=== PATIENT | male | born 1960 | race African-American/Black ===

== ENCOUNTER 2019-12-20 13:08 | Emergency (ER) | payer OTHER ==
[~2019-12-20] VITALS: Ht 182.9 cm; Wt 86.4 kg
[2019-12-20 15:43] LABS: HEMATOCRIT 40.3 % (41-53); HEMOGLOBIN 13.2 g/dL (13.5-17.5)
[2019-12-20 16:50] VITALS: BP 139/75
== END 2019-12-20 16:53 | disposition home or self-care (01) ==
LOC: EMS 13:43
DX: K64.9 Unspecified hemorrhoids (principal); K62.5 Hemorrhage of anus and rectum; E78.00 Pure hypercholesterolemia, unspecified; I10 Essential (primary) hypertension; F17.210 Nicotine dependence, cigarettes, uncomplicated
CPT/HCPCS: 85014; 85018

== ENCOUNTER 2020-09-26 16:53 | Inpatient (IN) | payer SELFPAY ==
[~2020-09-26] VITALS: Ht 182.9 cm; Wt 83.0 kg
[2020-09-26] MEDS ORDERED: ALBUTEROL SULFATE HFA 90 MCG/PUFF 8 GM INHALER IH ONE (18:00)
[2020-09-26 18:58] LABS: BASOPHILS % (AUTO) 0.3 % (0.0-2.0); EOSINOPHILS % (AUTO) 0.2 % (1.0-6.0); HEMATOCRIT 36.5 % (41-53); HEMOGLOBIN 12.1 g/dL (13.5-17.5); LYMPHOCYTES # (AUTO) 1.4 K/uL (1.0-4.8); LYMPHOCYTES % (AUTO) 11.6 % (22.0-44.0); MEAN CORPUSCULAR HEMOGLOBIN 33.4 pg (26.0-34.0); MEAN CORPUSCULAR HGB CONC 33.2 G/dL (31.0-37.0); MEAN CORPUSCULAR VOLUME 101 fL (80-100); MONOCYTES # (AUTO) 0.8 K/uL (0.1-1.0); MONOCYTES % (AUTO) 6.5 % (2.0-9.0); NEUTROPHILS # (AUTO) 9.8 K/uL (1.8-7.7); NEUTROPHILS % (AUTO) 81.4 % (40.0-70.0); PLATELET COUNT (AUTO) 318 K/uL (150-450); RED BLOOD CELL COUNT(AUTO) 3.63 MIL/uL (4.50-5.90); RED CELL DISTRIBUTION WIDTH 14.3 % (11.5-14.5)
[2020-09-26 18:59] LABS: COVID AG,FIA SOURCE NASOPHARYNGEAL
[2020-09-26 19:54] LABS: ALANINE AMINOTRANSFERASE 38 U/L (12-78); ALKALINE PHOSPHATASE 109 U/L (46-116); ANION GAP 8 mmol/L (8-16); ASPARTATE AMINOTRANSFERASE 30 U/L (15-37); BILIRUBIN,TOTAL 0.8 mg/dL (0.1-1.0); CALCIUM, TOTAL 9.5 mg/dL (8.8-10.5); CARBON DIOXIDE 29 mmol/L (22-29); CHLORIDE 94 mmol/L (98-107); CREATININE 1.02 mg/dL (0.60-1.30); GLOMERULAR FILTR. RATE CALC > 60 mL/min (>60); GLUCOSE,RANDOM 116 mg/dL (70-110); SODIUM SERUM 131 mmol/L (136-145); TOTAL PROTEIN, SERUM 8.1 g/dL (6.4-8.2); UREA NITROGEN, BLOOD 6 mg/dL (7-18)
[2020-09-26 19:58] LABS: POTASSIUM 2.8 mmol/L (3.5-5.1)
[2020-09-26 19:59] LABS: B-TYPE NATRIURETIC PEPTIDE 12 pg/mL (0-100)
[2020-09-26] MEDS ORDERED: POTASSIUM CHLORIDE 20 MEQ ER TABLET PO ONE (20:15)
[2020-09-26] MEDS ORDERED: DOCUSATE SODIUM 100 MG CAPSULE PO PRN (20:30)
[2020-09-26] MEDS ORDERED: ACETAMINOPHEN 325 MG TABLET PO PRN (20:30)
[2020-09-26] MEDS: POTASSIUM CHL 10 MEQ/WATER 50 ML IV SCH ×2 (20:30→22:20)
[2020-09-26] MEDS ORDERED: ONDANSETRON HCL 4 MG/2 ML VIAL IVP PRN (20:30)
[2020-09-26] MEDS ORDERED: AZITHROMYCIN 500 MG/NS 250 ML IV ONE (20:45)
[2020-09-26] MEDS ORDERED: ASPIRIN 81 MG CHEWABLE TABLET PO ONE (20:45)
[2020-09-26] MEDS ORDERED: CefTRIAXone 1 GM/DEXTROSE 50 ML IV ONE (20:45)
[2020-09-26] MEDS ORDERED: POTASSIUM CHLORIDE 20 MEQ ER TABLET PO PRN (20:45)
[2020-09-26] MEDS ORDERED: POTASSIUM CHL 10 MEQ/WATER 50 ML IV PRN (20:45)
[2020-09-26] MEDS ORDERED: VANCOMYCIN HCL 1 GM/D5% WATER 200 ML IV ONE (20:45)
[2020-09-26] MEDS ORDERED: SODIUM CHLORIDE 0.9% 100 ML ONE (20:48)
[2020-09-26] MEDS ORDERED: IOVERSOL 350 MG/ML 100 ML VIAL ONE (20:48)
[2020-09-26] MEDS ORDERED: CefTRIAXone 1 GM/DEXTROSE 50 ML IV SCH (21:00)
[2020-09-26 23:15] VITALS: BP 125/67
[2020-09-26] MEDS: SODIUM CHLORIDE 0.9% 1,000 ML IV SCH (23:29)
[2020-09-26] MEDS ORDERED: PNEUMOCOCCAL VACCINE POLYVALENT 0.5 ML VIAL [PPSV23] IM ONE (23:45)
[2020-09-27 03:45] VITALS: BP_SYST 122; BP_SYST 98; BP_DIAS 57; BP_DIAS 75
[2020-09-27 06:46] LABS: BASOPHILS % (AUTO) 0.4 % (0.0-2.0); EOSINOPHILS % (AUTO) 0.4 % (1.0-6.0); HEMATOCRIT 32.1 % (41-53); HEMOGLOBIN 10.7 g/dL (13.5-17.5); LYMPHOCYTES # (AUTO) 1.4 K/uL (1.0-4.8); MEAN CORPUSCULAR HEMOGLOBIN 33.2 pg (26.0-34.0); MEAN CORPUSCULAR HGB CONC 33.4 G/dL (31.0-37.0); MEAN CORPUSCULAR VOLUME 100 fL (80-100); MONOCYTES # (AUTO) 0.8 K/uL (0.1-1.0); NEUTROPHILS # (AUTO) 11.3 K/uL (1.8-7.7); NEUTROPHILS % (AUTO) 83.2 % (40.0-70.0); PLATELET COUNT (AUTO) 300 K/uL (150-450); RED BLOOD CELL COUNT(AUTO) 3.22 MIL/uL (4.50-5.90); RED CELL DISTRIBUTION WIDTH 14.3 % (11.5-14.5)
[2020-09-27 06:52] LABS: ANION GAP 11 mmol/L (8-16); CALCIUM, TOTAL 8.9 mg/dL (8.8-10.5); CARBON DIOXIDE 25 mmol/L (22-29); CHLORIDE 103 mmol/L (98-107); CREATININE 0.87 mg/dL (0.60-1.30); GLOMERULAR FILTR. RATE CALC > 60 mL/min (>60); GLUCOSE,RANDOM 109 mg/dL (70-110); POTASSIUM 3.6 mmol/L (3.5-5.1); SODIUM SERUM 139 mmol/L (136-145); UREA NITROGEN, BLOOD 6 mg/dL (7-18)
[2020-09-27 07:44] VITALS: BP 120/70
[2020-09-27] MEDS ORDERED: HEPARIN SODIUM,PORCINE 5,000 UNITS/ML VIAL SQ SCH (11:45)
[2020-09-27] MEDS ORDERED: FAMOTIDINE 20 MG TABLET PO SCH (11:45)
[2020-09-27 11:53] VITALS: BP 125/68
[2020-09-27] MEDS: SODIUM CHLORIDE 0.9% 1,000 ML IV SCH (12:01)
[2020-09-27 15:41] VITALS: BP 118/62
[2020-09-27] MEDS ORDERED: AZITHROMYCIN 500 MG/NS 250 ML IV SCH (22:00)
== END 2020-09-27 15:45 | disposition left against medical advice (07) | DRG 871 ==
LOC: EMS 16:56 → 5N 20:30
PROVIDERS: ADMIT Internal Medicine; ATTEND Internal Medicine
DX: A41.9 Sepsis, unspecified organism (principal); J18.9 Pneumonia, unspecified organism; J44.0 Chronic obstructive pulmonary disease with (acute) lower respiratory infection; I10 Essential (primary) hypertension; E78.00 Pure hypercholesterolemia, unspecified; F17.210 Nicotine dependence, cigarettes, uncomplicated; E87.6 Hypokalemia; R91.8 Other nonspecific abnormal finding of lung field; Z20.822 Contact with and (suspected) exposure to COVID-19; Z53.29 Procedure and treatment not carried out because of patient's decision for other reasons
CPT/HCPCS: 71275; 83605; 83735; 83930; 84145; 85379; 87040; 87426; 93005; 94640; 99285; J0456; J0696; J1644; J3370; J3480; J3535; J7030; J7050; 36415-L1; 36415-TC; 71045-TC; U0003

== ENCOUNTER 2020-09-28 23:32 | Inpatient (IN) | payer SELFPAY ==
[~2020-09-28] VITALS: Ht 182.9 cm; Wt 83.0 kg
[2020-09-29] MEDS ORDERED: SODIUM CHLORIDE 0.9% 100 ML ONE (00:10)
[2020-09-29] MEDS ORDERED: IOVERSOL 350 MG/ML 150 ML VIAL ONE (00:10)
[2020-09-29] MEDS ORDERED: ACETAMINOPHEN 325 MG TABLET PO PRN ×2 (01:30)
[2020-09-29] MEDS ORDERED: ONDANSETRON HCL 4 MG/2 ML VIAL IVP PRN ×2 (01:30)
[2020-09-29 01:34] LABS: BASOPHILS % (AUTO) 0.4 % (0.0-2.0); EOSINOPHILS % (AUTO) 0.8 % (1.0-6.0); HEMATOCRIT 33.4 % (41-53); LYMPHOCYTES # (AUTO) 1.6 K/uL (1.0-4.8); LYMPHOCYTES % (AUTO) 13.6 % (22.0-44.0); MEAN CORPUSCULAR HEMOGLOBIN 32.9 pg (26.0-34.0); MEAN CORPUSCULAR HGB CONC 32.9 G/dL (31.0-37.0); MEAN CORPUSCULAR VOLUME 100 fL (80-100); MONOCYTES # (AUTO) 0.7 K/uL (0.1-1.0); NEUTROPHILS # (AUTO) 9.2 K/uL (1.8-7.7); NEUTROPHILS % (AUTO) 79.2 % (40.0-70.0); PLATELET COUNT (AUTO) 385 K/uL (150-450); RED BLOOD CELL COUNT(AUTO) 3.34 MIL/uL (4.50-5.90); RED CELL DISTRIBUTION WIDTH 14.7 % (11.5-14.5)
[2020-09-29 01:43] LABS: ALANINE AMINOTRANSFERASE 45 U/L (12-78); ALBUMIN 2.7 g/dL (3.4-5.0); ALKALINE PHOSPHATASE 98 U/L (46-116); ANION GAP 10 mmol/L (8-16); ASPARTATE AMINOTRANSFERASE 31 U/L (15-37); BILIRUBIN,TOTAL 0.8 mg/dL (0.1-1.0); CALCIUM, TOTAL 9.3 mg/dL (8.8-10.5); CARBON DIOXIDE 27 mmol/L (22-29); CHLORIDE 97 mmol/L (98-107); CREATININE 1.18 mg/dL (0.60-1.30); GLOMERULAR FILTR. RATE CALC > 60 mL/min (>60); GLUCOSE,RANDOM 147 mg/dL (70-110); SODIUM SERUM 134 mmol/L (136-145); TOTAL PROTEIN, SERUM 7.5 g/dL (6.4-8.2); UREA NITROGEN, BLOOD 6 mg/dL (7-18)
[2020-09-29 01:46] LABS: POTASSIUM 2.6 mmol/L (3.5-5.1)
[2020-09-29 01:47] LABS: PROTHROMBIN TIME 10.9 SEC (9.4-11.6)
[2020-09-29] MEDS ORDERED: CefTRIAXone 1 GM/DEXTROSE 50 ML IV SCH (02:00)
[2020-09-29] MEDS ORDERED: POTASSIUM CHLORIDE 20 MEQ ER TABLET PO ONE ×2 (02:00→06:00)
[2020-09-29 02:20] VITALS: BP 114/75
[2020-09-29] MEDS ORDERED: SODIUM CHLORIDE 0.9% 250 ML IV ONE (02:48)
[2020-09-29] MEDS: HEPARIN SODIUM,PORCINE 5,000 UNITS/ML VIAL SQ SCH ×2 (08:00→08:21)
[2020-09-29 09:03] VITALS: BP 90/58
[2020-09-29 12:00] VITALS: BP 100/71
== END 2020-09-29 13:00 | disposition home or self-care (01) | DRG 301 ==
LOC: EMS 23:33 → 5S 09-29 01:24
PROVIDERS: ADMIT Internal Medicine; ATTEND Internal Medicine
DX: I87.1 Compression of vein (principal); E87.6 Hypokalemia; E78.00 Pure hypercholesterolemia, unspecified; I10 Essential (primary) hypertension; F17.210 Nicotine dependence, cigarettes, uncomplicated; Z66 Do not resuscitate; R22.0 Localized swelling, mass and lump, head; Z20.822 Contact with and (suspected) exposure to COVID-19
CPT/HCPCS: 70498; 71275; 84132; 99285; J0696; J1644; J7050

== ENCOUNTER 2024-03-01 20:57 | Emergency (ER) | payer SELFPAY ==
[~2024-03-01] VITALS: Ht 182.9 cm; Wt 77.7 kg
[2024-03-02 00:19] LABS: BASOPHILS % (AUTO) 0.6 % (0.0-2.0); EOSINOPHILS % (AUTO) 2.7 % (1.0-6.0); HEMATOCRIT 41.9 % (41-53); HEMOGLOBIN 13.8 g/dL (13.5-17.5); LYMPHOCYTES # (AUTO) 2.2 K/uL (1.0-4.8); LYMPHOCYTES % (AUTO) 36.2 % (22.0-44.0); MEAN CORPUSCULAR HEMOGLOBIN 34.7 pg (26.0-34.0); MEAN CORPUSCULAR HGB CONC 32.9 G/dL (31.0-37.0); MEAN CORPUSCULAR VOLUME 106 fL (80-100); MONOCYTES # (AUTO) 0.5 K/uL (0.1-1.0); MONOCYTES % (AUTO) 7.4 % (2.0-9.0); NEUTROPHILS # (AUTO) 3.3 K/uL (1.8-7.7); NEUTROPHILS % (AUTO) 53.1 % (40.0-70.0); PLATELET COUNT (AUTO) 206 K/uL (150-450); RED BLOOD CELL COUNT(AUTO) 3.97 MIL/uL (4.50-5.90); RED CELL DISTRIBUTION WIDTH 15.2 % (11.5-14.5); WHITE BLOOD COUNT (AUTO) 6.2 K/uL (4.5-11.0)
[2024-03-02 00:24] LABS: RBC MORPHOLOGY COMMENT ABNORMAL RBC MORPH
[2024-03-02 00:26] LABS: ANION GAP 8 mmol/L (8-16); CALCIUM, TOTAL 8.6 mg/dL (8.8-10.5); CARBON DIOXIDE 26 mmol/L (22-29); CHLORIDE 104 mmol/L (98-107); CREATININE 0.88 mg/dL (0.60-1.30); GLOMERULAR FILTR. RATE CALC > 60 mL/min (>60); GLUCOSE,RANDOM 103 mg/dL (70-110); LIPASE 50 U/L (16-77); POTASSIUM 3.3 mmol/L (3.5-5.1); SODIUM SERUM 138 mmol/L (136-145); UREA NITROGEN, BLOOD 5 mg/dL (7-18)
[2024-03-02 00:34] LABS: TROPONIN I-HIGH SENSITIVITY 4 ng/L (<76)
[2024-03-02 01:08] VITALS: BP 154/93; PULSE 77; RESP 22
[2024-03-02 01:22] LABS: APPEARANCE,URINE CLEAR (CLEAR); BILIRUBIN,URINE NEGATIVE (NEGATIVE); COLOR,URINE COLORLESS (YELLOW); GLUCOSE, URINE (UA) NEGATIVE (NEGATIVE); KETONES,URINE NEGATIVE (NEGATIVE); LEUKOCYTE ESTERASE ,URINE NEGATIVE (NEGATIVE); NITRATE,URINE NEGATIVE (NEGATIVE); OCCULT BLOOD,URINE NEGATIVE (NEGATIVE); PROTEIN,URINE NEGATIVE (NEGATIVE); SPECIFIC GRAVITIY, URINE 1.003 (1.003-1.030); UROBILINOGEN,URINE <=1.0 mg/dL (<=1.0)
[2024-03-02] MEDS: POTASSIUM CHLORIDE 20 MEQ ER TABLET PO ONE (01:59)
[2024-03-02] MEDS ORDERED: PANT-31 PO (02:17)
== END 2024-03-02 02:40 | disposition home or self-care (01) ==
LOC: EMS 20:57
DX: R10.13 Epigastric pain (principal); E78.00 Pure hypercholesterolemia, unspecified; I10 Essential (primary) hypertension; F17.210 Nicotine dependence, cigarettes, uncomplicated
CPT/HCPCS: 71045; 74176; 80048; 81003; 83690; 83880; 84484; 85025; 93005; 99285; 36415-L1; 36415-TC